=== PATIENT | female | born 1970 | race Caucasian/White ===

== ENCOUNTER 2016-12-12 07:23 | Day surgery (SDC) | payer OTHER ==
[~2016-12-12 07:23] MED LIST: FENTANYL CITRATE 50 MCG/ML SOL ONE; LIDOCAINE 1% W/EPI MPF 10 ML SOL ONE; MIDAZOLAM 2 MG/2 ML SOL ONE; ROPIVACAINE HYDROCHLORIDE 5 MG/ML SOL ONE
[2016-12-12] MEDS ORDERED: MIDAZOLAM 2 MG/2 ML SOL ONE (08:40)
[2016-12-12] MEDS ORDERED: DEXAMETHASONE 20 MG/5 ML (4 MG/ML SOL) ONE (08:40)
[2016-12-12] MEDS ORDERED: ONDANSETRON HCL 4 MG/2 ML SOL ONE (08:40)
[2016-12-12] MEDS ORDERED: KETAMINE HYDROCHLORIDE 50 MG/ML SOL ONE (08:40)
[2016-12-12] MEDS ORDERED: LIDOCAINE HCL 1% MPF SOL ONE (08:40)
[2016-12-12] MEDS ORDERED: METOCLOPRAMIDE HYDROCHLORIDE 5 MG/ML SOL ONE (08:40)
[2016-12-12] MEDS ORDERED: PROPOFOL 500 MG/50 ML EMU IV ONE ×3 (08:40→10:04)
[2016-12-12] MEDS ORDERED: FENTANYL CITRATE 50 MCG/ML SOL ONE (08:41)
[2016-12-12] MEDS ORDERED: BUPIVACAINE HCL 0.5% MPF 10 ML SOL ONE (08:46)
[2016-12-12] MEDS ORDERED: CEFAZOLIN SODIUM 1 GM PDS ONE (09:35)
[2016-12-12] MEDS ORDERED: PROPOFOL 10 MG/ML EMU IV ONE (10:35)
[2016-12-12] MEDS ORDERED: KETOROLAC TROMETHAMINE 30 MG/ML SOL ONE (10:46)
[2016-12-12 12:33] VITALS: BP 116/58; PULSE 74; RESP 16; TEMP 06.6; O2SAT 97
== END 2016-12-12 12:50 | disposition home or self-care (01) | DRG 563 ==
LOC: SURG 07:23
PROVIDERS: ATTEND Orthopaedic Surgery
DX: S52.572A Other intraarticular fracture of lower end of left radius, initial encounter for closed fracture (principal); W19.XXXA Unspecified fall, initial encounter
CPT/HCPCS: 73100; 76000; J0690; J1100; J1885; J2250; J2405; J2765; J2795; J3010; A6402; J2001; J2704

== ENCOUNTER 2016-12-19 09:56 | Outpatient (CLI) | payer OTHER ==
[2016-12-12 12:33] VITALS: O2SAT 97
== END 2016-12-19 09:57 | disposition home or self-care (01) | DRG 561 ==
LOC: CONVCARE 09:56
PROVIDERS: ATTEND Orthopaedic Surgery
DX: S52.572D Other intraarticular fracture of lower end of left radius, subsequent encounter for closed fracture with routine healing (principal)
CPT/HCPCS: 73110

== ENCOUNTER 2017-01-17 07:59 | Outpatient (CLI) | payer OTHER ==
[2016-12-12 12:33] VITALS: O2SAT 97
== END 2017-01-17 08:00 | disposition home or self-care (01) | DRG 561 ==
LOC: CONVCARE 07:59
PROVIDERS: ATTEND Orthopaedic Surgery
DX: S52.502D Unspecified fracture of the lower end of left radius, subsequent encounter for closed fracture with routine healing (principal)
CPT/HCPCS: 73110

== ENCOUNTER 2017-02-20 11:56 | Outpatient (CLI) | payer OTHER ==
[2016-12-12 12:33] VITALS: O2SAT 97
== END 2017-02-20 11:57 | disposition home or self-care (01) | DRG 561 ==
LOC: RAD 11:56
PROVIDERS: ATTEND Orthopaedic Surgery
DX: S52.502D Unspecified fracture of the lower end of left radius, subsequent encounter for closed fracture with routine healing (principal)
CPT/HCPCS: 73110

== ENCOUNTER 2018-09-30 12:37 | Day surgery (SDC) | payer OTHER ==
[2018-09-30] MEDS ORDERED: BUPIVACAINE HCL 0.25% MPF 30 ML SOL INFIL ONE (12:52)
[2018-09-30] MEDS: DEXAMETHASONE SOD PHOS PF 10 MG/ML SOL IJ ONE ×2 (13:10→13:20)
[2018-09-30] MEDS ORDERED: FENTANYL 100MCG/2ML SOL ONE (13:17)
[2018-09-30] MEDS ORDERED: MIDAZOLAM 2 MG/2 ML SOL ONE (13:17)
[2018-09-30 13:49] VITALS: BP 120/74; PULSE 86; RESP 16; TEMP 97.2; O2SAT 97
== END 2018-09-30 13:50 | disposition home or self-care (01) | DRG 74 ==
LOC: SURG 12:37
PROVIDERS: ATTEND Nurse Anesthetist, Certified Registered
DX: M54.12 Radiculopathy, cervical region (principal)
CPT/HCPCS: J2250; J3010; J1100

== ENCOUNTER 2018-11-30 08:46 | Day surgery (SDC) | payer OTHER ==
[2018-11-30 09:21] VITALS: TEMP 98.3
[2018-11-30] MEDS ORDERED: SODIUM CHLORIDE 0.9% FLUSH 10 ML SOL IV ONE (09:32)
[2018-11-30] MEDS ORDERED: DEXAMETHASONE SOD PHOS PF 10 MG/ML SOL IJ ONE (09:35)
[2018-11-30] MEDS ORDERED: BUPIVACAINE HCL 0.25% MPF 30 ML SOL INFIL ONE (09:35)
[2018-11-30] MEDS ORDERED: FENTANYL 100MCG/2ML SOL ONE (09:36)
[2018-11-30] MEDS: MIDAZOLAM 2 MG/2 ML SOL ONE ×2 (09:49→10:03)
[2018-11-30 10:02] VITALS: RESP 14
[2018-11-30 10:08] VITALS: O2SAT 99
[2018-11-30 10:12] VITALS: BP 136/92; PULSE 97
== END 2018-11-30 10:40 | disposition home or self-care (01) | DRG 74 ==
LOC: SURG 08:46
PROVIDERS: ATTEND Nurse Anesthetist, Certified Registered
DX: M54.12 Radiculopathy, cervical region (principal)
CPT/HCPCS: J2250; J3010; J1100